=== PATIENT | female | born 1995 | race Caucasian/White ===

== ENCOUNTER → 2017-09-28 | Outpatient (CLI) | payer OTHER ==
[~2017-09-28] MED LIST: ACET325T96 PO; CHOL100010 PO; GADAVIST IV PRN; Iron Supplement PO
--- NOTE | 2017-09-28 14:00 | DIAGNOSTIC IMAGING REPORT ---
CERVICAL SPINE COMBO HISTORY: Demyelinating disorder G35 Multiple [id number] TECHNIQUE: Multiplanar multisequence MRI of the cervical spine was performed both before and after the use of intravenous contrast. COMPARISON STUDY: None. FINDINGS: Signal characteristics of the vertebral bodies as well as intervertebral disc appear unremarkable. The sagittal inversion recovery sequences demonstrates several foci of increased signal within the cervical cord. There is 7 mm focus posterior to the C1-C2 level. There are several small peripheral left-sided foci at C3 C5 and C7. Somewhat larger foci are seen posterior to posterior to C6 measuring 7 mm. Postcontrast sagittal images are considered negative for an enhancing lesion. Pre and postcontrast transaxial images confirm the focus of increased signal in the left lateral column of C2. C3-C4: Small focus of increased signal extreme left lateral cervical cord. C4-C5: No significant central canal or neural foraminal narrowing. C5-C6: The additional foci of increased signal best seen sagittal images are not well seen transaxially. C6-C7: No significant central canal or neural foraminal narrowing. C7-T1: No significant central canal or neural foraminal narrowing. IMPRESSION: 1. Multiple foci of moderately increased signal of the cervical cord as discussed. 2. Kidneys are most prominent at C1-C2, C3, C5, and C7. 3. No evidence for abnormal postcontrast enhancement. 4. The appearance most consistent with that of a demyelinating disorder The above report was generated using voice recognition software. It may contain grammatical, syntax or spelling errors. Electronically signed by: Scott Mendoza M.D. 09/28/2017 1:59 PM Dictated Date/Time: 09/28/2017 1:53 PM
--- NOTE | 2017-09-28 14:22 | DIAGNOSTIC IMAGING REPORT ---
Brain MRI WITH AND WITHOUT CONTRAST HISTORY: Numbness in feet. G35 Multiple sclerosis COMPARE TO PREVIOUS MRI--PT WILL HAND GONZALEZ TECHNIQUE: Multiplanar multisequence MRI of the brain was performed both before and after the intravenous administration of contrast. COMPARISON STUDY: Outside hospital brain MRI 06/22/2016. FINDINGS: There is no mass, hematoma, midline shift, acute infarct. The ventricles and sulci are within normal limits. Mild mucosal thickening within the right ethmoid air cells. The mastoid air cells are clear. The major vascular flow voids at the skull base are well-maintained. There again noted multiple scattered foci of T2 hyperintensity seen within the periventricular and subcortical white matter of the supratentorial brain consistent with the patient's history of multiple sclerosis. There is also a 5 mm white matter plaque within the right kasie. Majority of these are similar compared the prior study. Dominant parietal white matter plaques have improved. Dominant white matter plaque within the left parietal lobe previously measured 1.3 cm and currently measures 6 mm. There are 2 enhancing white matter plaques within the left parietal lobe with the largest measuring 6 mm. This is consistent with active demyelination. IMPRESSION: 1. There are 2 enhancing white matter plaques within the left parietal lobe consistent with active demyelination. 2. The majority of the white matter plaques throughout the brain are similar compared to the prior study. However, the dominant parietal white matter plaques have improved. Electronically signed by: Alec Hernandez M.D. 09/28/2017 2:21 PM Dictated Date/Time: 09/28/2017 2:08 PM
== END | disposition home or self-care (01) ==
LOC: C.MRIBC 12:25
PROVIDERS: ATTEND Psychiatry & Neurology Neurology
DX: G35 Multiple sclerosis (principal)